=== PATIENT | female | born 1990 | race Caucasian/White ===

== ENCOUNTER 2018-12-18 09:14 | Emergency (ER) | payer SELFPAY ==
[2018-12-18 09:52] LABS: Bilirubin Negative (Negative); Blood, Urine Negative (Negative); Clarity Clear (Clear); Glucose, Urine (Dipstick) Normal (Negative); Leukocyte 25 Leu/uL (Negative); Nitrite Negative (Negative); Protein, Urine (Dipstick) Negative (Neg-Trace); RBC/HPF 0-3 HPF (0-3); Urobilinogen Normal mg/dL (Less than 2); WBC/HPF 0-3 HPF (0-3)
[2018-12-18 10:01] LABS: Bacteria/HPF 1+ HPF (None Seen)
[2018-12-18 11:34] LABS: Pregnancy Test - Urine (BHCG) Negative (Negative); Pregu Control Background? CLEAR/WHITE (CLR/WHITE); Pregu Control Bar Appear? YES (CONTROL BAR); Specific Gravity 1.015 (1.002-1.036)
== END 2018-12-18 11:57 | disposition home or self-care (01) ==
LOC: ERS 09:14
DX: R30.0 Dysuria (principal); F17.210 Nicotine dependence, cigarettes, uncomplicated
CPT/HCPCS: 51798; 81003; 81015; 81025; 87086; 99283

== ENCOUNTER 2019-01-07 14:39 | Emergency (ER) | payer SELFPAY | END 2019-01-07 16:00 | disposition home or self-care (01) | LOC: ERS 14:39 | DX: B35.8 Other dermatophytoses (principal); F17.210 Nicotine dependence, cigarettes, uncomplicated ==